=== PATIENT | male | born 1955 | race Caucasian/White ===

== ENCOUNTER 2018-08-23 05:58 | Inpatient (IN) ==
--- NOTE | 2018-07-01 10:00 | Anesthesiology Consultation ---
Date of Service July 01, 2018 Assessment & Plan (1) Encounter for pre-operative examination: Chart Review Chart Review: Acceptable Risk for Surgery and Patient seen in Pre Admission Testing Teaching & Discussion Instructed NPO after midnight before surgery, except medications with 15 cc of water. Medication instructions provided according to the PAT guidelines. History Surgery Operation Date: 08/23/18 08:50 Proposed Procedures p Left Total Knee Arthroplasty - Hilario Nguyen MD Height/Weight Height: 5 ft 5.5 in Weight: 93.3 kg Allergies Allergy/AdvReac Type Severity Reaction Status Date / Time Penicillins Allergy Severe CONVULSIONS/SEIZURE Verified 06/26/18 12:00 LIKE ACTIVITY Medications Home Medications Medication Instructions Recorded Confirmed Last Taken lisinopril 20 mg PO QAM 06/26/18 06/26/18 Unknown meloxicam 15 mg PO QAM 06/26/18 06/26/18 Unknown Past Medical History Medical History Cancer SKIN ABOVE RT EYE Hyperlipidemia BORDERLINE Hypertension Migraine Obesity Osteoarthritis Past Surgical History Surgical History History of colonoscopy History of herniorrhaphy RT/LEFT INGUINAL History of mandibular surgery BROKEN JAW REPAIR 1974, NO ISSUES WITH JAW NOW History of tooth extraction Past Anesthesia History No Hx of Anesthesia Complications and No Family Hx of Anesthesia Complications History of PONV No Social History Smoking Status: Never smoker Do You Dip or Chew Tobacco: No Hx Alcohol Use: Yes Alcohol type: beer and wine alcohol intake frequency: a few times a month Hx Substance Use: No substance use type: does not use Exercise / Class Metabolic Activity II 4-5 Yardwork/Stairs/Walk up hill (some mild occ SOB with stairs 2/2 knee pain /deconditioning, no CP) Review of Systems Pt denies any recent chest pain, shortness of breath, palpitations, cough, fever. +seasonal cold Physical Exam Vital Signs BP: 162/88 P: 86 SPO2: 95% RA T: 98.3 R: 16 ENMT Mouth: + dentition abnormality (few missing); no dental restorations, no chipped teeth and no loose teeth Thyromental Distance: < 3.5 Finger Breadths (2) Mallampati Class: II Neck neck extension not limited Respiratory normal respiratory effort Auscultation: lungs clear to auscultation bilaterally Cardiovascular Rate/Rhythm: regular rate and regular rhythm Heart Sounds: no murmur Vessels: no carotid bruit Extremities: no edema Testing Electrocardiogram Date: 07/01/18 Findings: + NSR @ (82) Chest X-Ray Date: 07/01/18 Findings: + NAD Laboratory Results 07/01/18 10:15 07/01/18 10:15 Blood Type B Positive 07/01/18 10:15 Antibody Screen NEGATIVE 07/01/18 10:15 PT 10.4 Seconds (9.0-12.0) 07/01/18 10:15 INR 1.0 (0.9-1.1) 07/01/18 10:15 APTT 26.8 Seconds (21.0-31.0) 07/01/18 10:15
--- NOTE | 2018-07-01 10:07 | PAT Medication Instructions ---
Medication Instructions Date of Service July 01, 2018 Home Medications lisinopril 20 mg PO QAM meloxicam 15 mg PO QAM Per surgeon's instructions meloxicam 15 mg PO QAM (to be held for 10 days prior to surgery) Hold the morning of surgery lisinopril 20 mg PO QAM NOTHING TO EAT OR DRINK AFTER MIDNIGHT Other Notes If you have any questions please call us at [phone] or [phone] or [phone] or [phone]
--- NOTE | 2018-07-01 10:46 | XRay Report ---
XR chest Pre-admission PA/Lat HISTORY: PREOP COMPARISON: None. FINDINGS: The lungs are clear. Cardiac silhouette is normal in size. No pleural effusions. No pneumot horax. IMPRESSION: No acute process. Electronically signed by: Gume Melendez M.D. 07/01/2018 10:45 AM
[2018-07-01 10:50] LABS: Basophils # (auto) 0.03 K/uL (0-0.2); Basophils % (auto) 0.4 %; Eosinophils # (auto) 0.14 K/uL (0-0.5); Eosinophils % (auto) 1.9 %; Hematocrit (blood only) 44.6 % (42-52); Hemoglobin 15.3 g/dL (14.0-18.0); Immature Granulocytes # (auto) 0.02 K/uL (0.00-0.02); Immature Granulocytes % (auto) 0.3 %; Lymphocytes # (auto) 1.34 K/uL (1.2-3.4); Lymphocytes % (auto) 18.1 %; Mean Corpuscular Hgb Conc 34.3 g/dL (32-36); Mean Corpuscular Volume 90.7 fL (80-100); Mean Platelet Volume 9.7 fL (7.4-10.4); Monocytes # (auto) 0.65 K/uL (0.11-0.59); Monocytes % (auto) 8.8 %; Neutrophils # (auto) 5.21 K/uL (1.4-6.5); Neutrophils % (auto) 70.5 %; Platelet Count 196 K/uL (130-400); RDW Coefficient of Variation 12.8 % (11.5-14.5); RDW Standard Deviation 42.7 fL (36.4-46.3); Red Blood Count 4.92 M/uL (4.7-6.1); White Blood Count 7.39 K/uL (4.8-10.8)
[2018-07-01 10:59] LABS: Partial Thromboplastin Time 26.8 Seconds (21.0-31.0); Prothrombin Time 10.4 Seconds (9.0-12.0)
[2018-07-01 12:21] LABS: BUN Creatinine Ratio 23.7 (10-20); Creatinine Clr Calc Pharmacy 86.3 ml/min; Est GFR (African American) 100.3; Est GFR (Non-African American) 86.5; Potassium 4.4 mmol/L (3.5-5.1)
--- NOTE | 2018-08-18 12:55 | History and Physical Report ---
DATE OF ADMISSION: 08/23/2018 CHIEF COMPLAINT: Bilateral knee pain and discomfort, left side greater than right. HISTORY OF PRESENT ILLNESS: Patient is a 63-year-old gentleman whom I have been following for years for his bilateral knee pain and DJD. He has a long history of knee pain. We have been putting in injections to his knees every 3 months over the past 3 years. He has been waiting and trying to put off surgery but now has decided to proceed. Both knees hurt. The shots give him just temporary relief anymore. The left knee is quite a bit worse than right. He has pain all the time. The more he walks, the more it hurts. He has nighttime pain. He has difficulty going up and down steps. They could proceed with the surgery. PAST MEDICAL HISTORY: Significant for 1. Hypertension. 2. Arthritis. 3. Kidney stones. 4. BPH. PAST SURGICAL HISTORY: Previous surgeries include 1. Herniorrhaphy x2. 2. A dental/mandibular osteotomy. ALLERGIES: PENICILLIN WHICH CAUSED HIVES. No known respiratory problems. Question of a convulsion with the penicillin years ago. MEDICATIONS: Current medications include 1. Lisinopril. 2. Mobic. SOCIAL HISTORY: A 63-year-old male, quite active. He is . He does not smoke. No significant alcohol intake. FAMILY HISTORY: Noncontributory. REVIEW OF SYSTEMS: Negative for diabetes, neurologic problem, vascular problem, bleeding disorders. No chest pain, no shortness of breath. No history of DVT or PE. PHYSICAL EXAMINATION: GENERAL: Examination reveals a healthy and pleasant middle-aged male. He looks to be in good health. HEENT: Benign. NECK: Supple. No lymphadenopathy. RESPIRATORY: Lungs are clear to auscultation. CARDIOVASCULAR: Heart has a regular rate and rhythm. GASTROINTESTINAL: Abdomen is soft, nontender, nondistended. EXTREMITIES: Grossly neurovascularly intact except as follows: Examination of both knees reveals patient walks with a waddling gait. He has varus alignment to both knees. With weightbearing, he has varus stress bilaterally. He has bony hypertrophy in the medial side of both knees with moderate sized knee effusion. Range of motion is symmetric with about 10 degree flexion contracture bilaterally in flexion to 115 degrees. No pain with his hip motion. IMAGING: X-rays of both knees reviewed. He has advanced bilateral knee DJD. He has complete loss of his medial joint space with some tibial femoral subluxation. He has varus deformity. The left knee is probably a bit worse than the right. ASSESSMENT: A 63-year-old male with advanced bilateral knee pain, degenerative joint disease, left side more severe than the right. He has failed conservative treatment and now would like to proceed with the total knee replacement. PLAN: Will take him to the operating room and do a left total knee replacement. The risks and benefits of this procedure were explained to the patient including but not limited to DVT, PE, , infection, neurological injury, vascular injury, bleeding problem, pain, limited range of motion, stiffness, failure to relieve symptoms, incomplete relief of symptoms, need for further surgery in the future, etc. Patient understands and desires to proceed. Informed consent was obtained. We did talk to him about holding his lisinopril on the morning of surgery. He has already stopped his Mobic. He should be okay taking Ancef as this penicillin does not sound like a real true anaphylactic reaction.
[2018-08-23] MEDS ORDERED: FAMOTIDINE 20 MG TAB PO SCH (06:00)
[2018-08-23] MEDS ORDERED: SCOPOLAMINE 1.5 MG TDSY TD SCH (06:00)
[2018-08-23] MEDS ORDERED: GABAPENTIN 300 MG x 2 PO SCH (06:00)
[2018-08-23] MEDS ORDERED: BUPIVACAINE LIPOSOME/PF 266 MG, BUPIVACAINE/EPINEPHRINE 50 ML, SODIUM CHLORIDE 0.9% 30 ... INFIL SCH (06:00)
[2018-08-23] MEDS ORDERED: CEFAZOLIN 2000MG 2,000 MG/15 ML SYR IV SCH (06:00)
[2018-08-23] MEDS ORDERED: LR 15ML/HR IV SCH (06:00)
[2018-08-23] MEDS ORDERED: ACETAMINOPHEN 500 MG TAB PO SCH (06:00)
[2018-08-23] MEDS ORDERED: METOCLOPRAMIDE HCL 10 MG TABLET PO SCH (06:00)
[2018-08-23] MEDS ORDERED: TRANEXAMIC ACID 1,000 MG **IV Intra-op IV SCH (06:30)
[2018-08-23] MEDS ORDERED: ROPIVACAINE 0.5% 5 MG/ML 30 ML VIAL ONE (06:32)
[2018-08-23] MEDS ORDERED: BUPIVACAINE 0.5 % 5 MG/1 ML PF 10ML VIAL ONE (06:33)
[2018-08-23] MEDS: LR 500ML BOLUS, THEN 15ML/HR IV SCH ×2 (06:50→13:04)
--- NOTE | 2018-08-23 06:51 | History & Physical Bridge Note ---
Date of Service August 23, 2018 History & Physical Bridge Note I have examined the patient, reviewed the History & Physical and in the interval since the performance of the History & Physical I have noted the following changes of clinical significance: no changes noted
[2018-08-23] MEDS ORDERED: ONDANSETRON INJ 2 MG/ML 2 ML VIAL IV PRN ×2 (07:47→12:29)
[2018-08-23] MEDS ORDERED: fentaNYL citrate 100 MCG/2 ML VIAL IV PRN (07:47)
[2018-08-23] MEDS ORDERED: PHENYLEPHRINE 100MCG/ML 5ML SYR IV PRN (07:47)
[2018-08-23] MEDS ORDERED: ATROPINE SULFATE 0.1 MG/ML 10ML SYR IV PRN (07:47)
[2018-08-23] MEDS ORDERED: HYDROmorphone INJ 1 MG/ML SYRINGE IV PRN (07:47)
[2018-08-23] MEDS ORDERED: PROMETHAZINE HCL 12.5 MG in SODIUM CHLORIDE 0.9% 50 ML IV PRN (07:47)
[2018-08-23] MEDS ORDERED: ePHEDrine sulfate 50 MG/ML AMP IV PRN (07:47)
[2018-08-23] MEDS ORDERED: PROPOFOL IV EMULSION 10 MG/ML 20 ML VIAL IV ONE (07:54)
[2018-08-23] MEDS ORDERED: LIDOCAINE HCL 2% 2 ML VIAL/AMP(20MG/ML) INFIL ONE (07:54)
[2018-08-23] MEDS ORDERED: MIDAZOLAM HCL 1 MG/ML 2ML VIAL ONE (07:55)
[2018-08-23] MEDS ORDERED: fentaNYL citrate 100 MCG/2 ML VIAL ONE (07:55)
[2018-08-23] MEDS ORDERED: BUPIVACAINE LIPOSOME 1.3% 266 MG/20 ML VIAL INFIL ONE (09:07)
[2018-08-23] MEDS ORDERED: BUPIVACAINE 0.25% 30 ML VIAL ONE (09:07)
[2018-08-23] MEDS ORDERED: SODIUM CHLORIDE 0.9% PF 50 ML VIAL ONE (09:07)
[2018-08-23] MEDS ORDERED: EPINEPHrine INJ 1 MG/ML AMP ONE (09:07)
[2018-08-23] MEDS ORDERED: BACITRACIN INJ 50,000 UNIT VIAL ONE (09:07)
[2018-08-23] MEDS ORDERED: PHENYLEPHRINE 100MCG/ML 5ML SYR ONE (09:56)
[2018-08-23] MEDS ORDERED: ePHEDrine sulfate 50 MG/ML SYR ONE (09:56)
--- NOTE | 2018-08-23 11:07 | Post Operative Brief Note ---
Immediate Post Op Note v1 Date of Surgery August 23, 2018 Pre & Post Diagnosis Operation Date: 08/23/18 08:50 Pre-Op Diagnosis: Left Knee Advanced Degenerative Joint Disease Post-Op Diagnosis: Left Knee Advanced Degenerative Joint Disease Procedure Operation Date: 08/23/18 08:50 Actual Procedures p Left Total Knee Arthroplasty(Left) - Hilario Nguyen MD Surgeon Hilario Nguyen MD Store Detective Merry, PAC Estimated Blood Loss 50 Findings Consistent with Post-Op Diagnosis Fluids 1500 cc Specimens Left Knee Drains Montez Catheter (16 English montez catheter was inserted by ALEX King, without difficulty, clear yellow urine obtained, otuput to be montiored by Anesthesia.) Anesthesia Type Spinal MAC Complications none Disposition Accompanied Patient To Recovery: No Disposition: Recovery Room
--- NOTE | 2018-08-23 11:54 | Anesthesiology Progress Note ---
Date of Service August 23, 2018 Anesthesia Post Procedure Vital Signs Vital Signs: Temp Pulse Resp BP Pulse Ox 08/23/18 11:50 82 20 136/71 98 08/23/18 11:40 36.4 C L 91 H 18 126/69 100 08/23/18 11:30 77 18 134/66 100 08/23/18 11:20 75 19 127/73 100 08/23/18 11:12 37.1 C 84 16 139/74 100 08/23/18 06:45 36.7 C 90 18 156/85 H 96 Notes Mental Status: alert / awake / arousable Patient Amnestic to Procedure: Yes Nausea / Vomiting: adequately controlled Pain: adequately controlled Airway Patency, RR, SpO2: stable & adequate BP & HR: stable & adequate Neuraxial Anesthesia: was administered and sensory block is resolving Anesthetic Complications: no major complications apparent
--- NOTE | 2018-08-23 12:26 | XRay Report ---
LEFT KNEE 2 VIEWS History: Left total knee arthroplasty. Degenerative arthritis. Postop. FINDINGS: The patient is status post a left total knee arthroplasty. The hardware is intact. No fract ure or dislocation. Skin nisreen are in place. IMPRESSION: Left total knee arthroplasty. No evidence for hardware complication. Electronically signed by: Gume Melendez M.D. 08/23/2018 12:25 PM
[2018-08-23] MEDS ORDERED: TAMSULOSIN HCL 0.4 MG CAP PO PRN (12:29)
[2018-08-23] MEDS ORDERED: METOCLOPRAMIDE HCL INJ 5 MG/ML 2 ML VIAL IV PRN (12:29)
[2018-08-23] MEDS ORDERED: NALOXONE HCL 0.4 MG/1 ML VIAL/CARP IV PRN (12:29)
[2018-08-23] MEDS ORDERED: ALUMINUM/MAGNESIUM SUSP 30 ML UDC PO PRN (12:29)
[2018-08-23] MEDS ORDERED: HYDROmorphone INJ 0.5 MG/0.5 ML SYR IV PRN (12:29)
[2018-08-23] MEDS ORDERED: MAGNESIUM HYDROXIDE SUSP 30 ML UDC PO PRN (12:29)
[2018-08-23] MEDS ORDERED: OXYCODONE HCL IR 5 MG TAB (IMMEDIATE RELEASE) PO PRN (12:29)
[2018-08-23] MEDS ORDERED: BISACODYL 10 MG SUPP PR PRN (12:29)
[2018-08-23] MEDS: KETOROLAC 30 MG/ML VIAL IV SCH ×2 (13:11→20:42)
--- NOTE | 2018-08-23 13:54 | Operative Report ---
DATE OF OPERATION: 08/23/2018 SURGEON: Hilario Nguyen MD HEPATOLOGIST: ALEX Finch PREOPERATIVE DIAGNOSIS: Left knee degenerative joint disease. POSTOPERATIVE DIAGNOSIS: Left knee degenerative joint disease. PROCEDURE PERFORMED: Left cemented posterior stabilized total knee arthroplasty. COMPLICATIONS: None. ESTIMATED BLOOD LOSS: 50 mL. FLUID REPLACEMENT: 1500 mL crystalloid fluid replacement. TOURNIQUET TIME: 60 minutes at 300 mmHg. ANESTHESIA: Spinal with adductor canal block. DRAINS: None. SPECIMENS: Left knee sent for pathology. OPERATIVE INDICATIONS: The patient is a 63-year-old gentleman who has had a long history of bilateral knee pain and discomfort. I have been treating him over the past several years with injections. This became less successful over time. He was waiting until he turned 63 for unclear reasons and has now elected to proceed with total knee arthroplasty. OPERATIVE FINDINGS: Operative findings revealed advanced left knee DJD. He had extensive grade 4 changes with eburnation of the medial femoral condyle and medial tibial plateau. He had large osteophytes in the medial compartment and posterior medial compartment. He had multiple large loose bodies throughout the knee. He had a fixed varus deformity to his knee with a large knee joint effusion. OPERATIVE IMPLANTS: Operative implants consisted of: 1. A Biomet Vanguard size 65 left posterior stabilized femoral component. 2. A Biomet size 71 tibial tray. 3. A 10 mm posterior stabilized polyethylene insert. 4. A 31 x 8 all poly patella. OPERATIVE PROCEDURE: The patient was taken to the operating room, identified, and placed on the operating table in supine position. All contact areas were appropriately padded. IV antibiotics provided by anesthesia team. A spinal anesthetic and adductor canal block had been provided in the holding area. Lopez catheter was placed in sterile fashion. Left thigh tourniquet was then placed and the left lower extremity was then prepped and draped in usual sterile fashion. The left leg was elevated and exsanguinated with Esmarch and tourniquet was placed at 300 mmHg. An anterior approach to the left knee was then performed through a longitudinal incision centered over the patella. Sharp dissection was carried out through the subcutaneous tissues down to the level of the extensor mechanism. A medial parapatellar arthrotomy incision was made. Some subperiosteal dissection was carried out medially. The fat pad resected from beneath the patellar tendon. The lateral patellofemoral ligament was released. The patella was everted and knee was flexed. The osteophytes were taken off the distal femur. The ACL and PCL were then released from the distal femur and the tibia subluxated anteriorly. The external tibial alignment jig was placed in the anterior face of the tibia and adjusted 16 mm medially. Proximal tibial cut was made essentially and flushed with the most deficient aspect of the posteromedial tibial plateau. He had quite a bit of tibial wear. Some osteophytes were taken off medially. The tibia was sized to a size 71. Attention was then drawn to the femur. The distal femur was entered with a sharp drill bit. Intramedullary canal was suctioned. A right 6-degree valgus cutting guide was placed. Distal femoral cutting block was pinned in place. Distal femoral cut was made to take an additional 3 mm of bone off the distal femur. Femur was then sized to a size 65. This sized exactly to a 65. The AP cutting block was pinned parallel to the epicondylar axis, which was 5 degrees of external rotation. The anterior cut, anterior chamfer, posterior cut, posterior chamfer cuts were made. Box cutting guide was placed and adjusted slightly lateral and the box cut was made. The knee was flexed. The remnants of the medial and lateral menisci were excised. The osteophytes were taken off the posterior aspect of the femur. Trial femoral component was placed. Tibial tray was pinned in maximum external rotation and drill and stem punch were used to create defect in proximal tibia for the tibial tray. The knee was then trialed and the 10 mm insert fit most appropriately. There was a little bit of laxity due to his stiff knee preoperatively, I elected to leave his knee just a little on the loose side. Attention was then drawn to the patella. The patella was cleaned of all soft tissues. Patella thickness measured 25 mm in thickness and cut down to 15. It was sized to a size 31 patella. Lug holes were drilled for 31 patella. Lateral osteophyte was removed. Patella button was placed. Knee was taken through range of motion and the patella tracked nicely with no thumbs test. Attention was then drawn toward placement of the permanent components. All trial components were removed. Bone plug was placed in the distal femur to limit blood loss. A double batch of Palacos G cement was mixed. A Biomet Vanguard size 65 left posterior stabilized femoral component, size 71 tibial tray, 10 mm posterior stabilized polyethylene insert, and a 31 x 8 all poly patella then cemented in place. Knee was brought down into full extension until cement hardened. A final cement check was then performed. The pericapsular tissues were injected with a total of 100 mL of a combination of 20 mL of Exparel, 30 mL normal saline, 50 mL of 0.25% Marcaine with epinephrine. The patient did receive 1 gram of tranexamic acid. The tourniquet was then let down for final tourniquet time of 60 minutes. Hemostasis was assured with use of electrocautery. The extensor mechanism was then closed with a combination of #1 PDS suture and #1 Vicryl suture in [id number] fashion. Extensor mechanism was checked and found to be intact. The subcutaneous tissues were then closed with 2 Dexon suture in buried interrupted fashion. Skin was closed with skin nisreen. Leg was then cleaned, dried and a sterile dressing of Xeroform, 4 x 4's, sterile cast padding and Duy bandage were applied. The patient then transferred to the recovery room in stable condition. The patient tolerated the procedure well with no complications. All needle and sponge counts were correct at the end of the operation. I attest to the content of the Intraoperative Record and any orders documented therein. Any exception s are noted below.
[2018-08-23] MEDS: SODIUM CHLORIDE 0.9% 1000ML 1,000 ML IV SCH (14:09)
[2018-08-23] MEDS ORDERED: TRANEXAMIC ACID 1,000 MG in 0.9 % SODIUM CHLORIDE 100 ML IV SCH (17:00)
[2018-08-23] MEDS: CEFAZOLIN 2000MG 2,000 MG/15 ML SYR IV SCH (17:22)
[2018-08-23] MEDS: LISINOPRIL 20 MG TAB PO SCH (17:22)
[2018-08-23] MEDS: FERROUS GLUCONATE 324 MG TAB PO SCH (17:23)
[2018-08-23] MEDS: CHECK SCOPOLAMINE PATCH PLACEMENT SCH ×2 (17:23→23:52)
[2018-08-23] MEDS: ASPIRIN 81 MG ECTAB PO SCH (20:42)
[2018-08-23] MEDS: DOCUSATE SODIUM 100 MG CAP PO SCH (20:42)
[2018-08-23] MEDS: TAPENTADOL HCL ER 50 MG TABCR PO SCH (20:42)
[2018-08-23] MEDS: ACETAMINOPHEN 500 MG TAB PO SCH (20:42)
[2018-08-23] MEDS ORDERED: SENNA 8.6 MG TAB PO SCH (21:00)
[2018-08-24] MEDS: SODIUM CHLORIDE 0.9% 1000ML 1,000 ML IV SCH (01:17)
[2018-08-24] MEDS: CEFAZOLIN 2000MG 2,000 MG/15 ML SYR IV SCH (02:04)
[2018-08-24] MEDS: KETOROLAC 30 MG/ML VIAL IV SCH ×2 (02:04→08:32)
[2018-08-24] MEDS: ACETAMINOPHEN 500 MG TAB PO SCH (05:35)
[2018-08-24 06:07] LABS: Hematocrit (blood only) 36.9 % (42-52); Hemoglobin 12.4 g/dL (14.0-18.0); Mean Corpuscular Hgb Conc 33.6 g/dL (32-36); Mean Corpuscular Volume 91.3 fL (80-100); Platelet Count 176 K/uL (130-400); RDW Coefficient of Variation 13.2 % (11.5-14.5); RDW Standard Deviation 43.8 fL (36.4-46.3); Red Blood Count 4.04 M/uL (4.7-6.1); White Blood Count 6.18 K/uL (4.8-10.8)
[2018-08-24 06:42] LABS: BUN Creatinine Ratio 20.7 (10-20); Calcium 8.8 mg/dl (8.5-10.1); Creatinine Clr Calc Pharmacy 77.6 ml/min; Est GFR (African American) 88.8; Est GFR (Non-African American) 76.6; Potassium 4.6 mmol/L (3.5-5.1)
--- NOTE | 2018-08-24 08:20 | Progress Note ---
DATE: 08/24/2018 SUBJECTIVE: A 63-year-old gentleman postop day 1 from a left knee replacement. He is doing quite well. Pain is controlled. No chest pain, no shortness of breath. Not feeling dizzy or lightheaded. He is worried about getting out of the hospital before storm comes. OBJECTIVE: VITAL SIGNS: Temperature 37.0. Stable. GENERAL: Examination shows a pleasant middle-aged male. He is sitting up in his bed working on his computer, looks comfortable. RESPIRATORY: Lungs are clear to auscultation. CARDIVOASCULAR: Heart has regular rate and rhythm. GASTROINTESTINAL: Abdomen is soft, nontender, nondistended. EXTREMITIES: Grossly neurovascularly intact except as follows: Examination of the left leg reveals the dressing to be clean, dry, and intact. He can dorsiflex and plantarflex his foot appropriately. He is neurologically intact. LABORATORY DATA: Hemoglobin 12.4, hematocrit 36.9. Electrolytes are stable. ASSESSMENT: A 63-year-old gentleman postop day 1 from a left knee replacement, doing reasonably well. His pain is controlled. He is quite concerned about getting out of the hospital before the storm comes. PLAN: 1. DVT prophylaxis including thigh-high TEDs, SCDs, and aspirin twice a day. 2. PT/OT. Weight bear as tolerated. Left total knee protocol. 3. Pain control, doing well with current pain regimen. 4. Disposition: He is going to be discharged to home and do outpatient therapy once recovered and stable. We will see how therapy goes today.
[2018-08-24] MEDS: DOCUSATE SODIUM 100 MG CAP PO SCH (08:25)
[2018-08-24] MEDS: FERROUS GLUCONATE 324 MG TAB PO SCH (08:25)
[2018-08-24] MEDS: ASPIRIN 81 MG ECTAB PO SCH (08:26)
[2018-08-24] MEDS: TAPENTADOL HCL ER 50 MG TABCR PO SCH (08:32)
[2018-08-24] MEDS: LISINOPRIL 20 MG TAB PO SCH (08:53)
[2018-08-24] MEDS ORDERED: MULTIVITAMIN TAB PO SCH (09:00)
--- NOTE | 2018-08-24 09:06 | Anesthesiology Progress Note ---
Date of Service August 24, 2018 Anesthesia Post Procedure Vital Signs Vital Signs: Temp Pulse Pulse Resp BP Pulse Ox 08/24/18 08:10 36.7 C 84 16 148/76 H 99 08/24/18 02:02 37.0 C 72 16 145/74 H 97 08/23/18 23:11 37.0 C 70 16 169/72 H 95 08/23/18 19:31 36.8 C 72 20 117/69 94 08/23/18 15:00 36.8 C 73 20 166/74 H 95 08/23/18 14:01 36.7 C 81 16 160/79 H 96 08/23/18 13:00 82 17 158/88 H 95 08/23/18 12:28 76 16 150/79 H 96 08/23/18 12:00 36.7 C 86 16 137/74 98 08/23/18 11:50 82 20 136/71 98 08/23/18 11:40 36.4 C L 91 H 18 126/69 100 08/23/18 11:30 77 18 134/66 100 08/23/18 11:20 75 19 127/73 100 08/23/18 11:12 37.1 C 84 16 139/74 100 Notes Mental Status: alert / awake / arousable Patient Amnestic to Procedure: Yes Nausea / Vomiting: adequately controlled Pain: adequately controlled Airway Patency, RR, SpO2: stable & adequate BP & HR: stable & adequate Neuraxial Anesthesia: was administered and sensory block is resolving Anesthetic Complications: no major complications apparent Notes: POD #1 s/p Left TKA. Doing well; no complaints. Has been up and ambulating, tolerating PO without problems. VSS.
--- NOTE | 2018-08-27 14:05 | Discharge Summary ---
ADMITTING PHYSICIAN AND SURGEON: Hilario Nguyen MD ADMITTING DIAGNOSIS: Left knee degenerative joint disease. SURGERY PERFORMED: Left total knee arthroplasty. SECONDARY DIAGNOSES: Hypertension, arthritis, kidney stones, benign prostatic hypertrophy. CONSULTS: None obtained. HISTORY AND PHYSICAL EXAMINATION: Well documented in the patient's chart. HOSPITAL COURSE: The patient was admitted on 08/23/2018, underwent total knee arthroplasty, tolerated the procedure well. There were no complications. He was transferred to the PACU postoperatively and later to the orthopedic floor for further care. He was given Ancef for antibiotic prophylaxis, JEREMIAH stockings, SCDs and aspirin for DVT prophylaxis. Hemoglobin, hematocrit and vital signs were monitored during his hospital stay and remained stable. He did not require any blood transfusions. There were no complications. By postoperative day 1, he was tolerating a regular diet, pain was controlled with oral pain medicine. He was participating in physical therapy. By postop day 1, he was discharged home. He was given printed discharge instructions including new prescriptions for extra-strength Tylenol, aspirin and oxycodone. Continue his home medications, continue physical therapy, weightbearing as tolerated, JEREMIAH stockings. Follow up approximately 2 weeks postoperatively or sooner if there are any problems or concerns.
== END 2018-08-24 11:45 | disposition home or self-care (01) | DRG 470 ==
LOC: ASU 05:58 → 3E 11:11

== ENCOUNTER 2019-09-02 08:09 | Inpatient (IN) ==
--- NOTE | 2019-07-22 14:23 | PAT Medication Instructions ---
Medication Instructions Date of Service July 22, 2019 Home Medications meloxicam 15 mg PO QAM hydrochlorothiazide 25 mg PO QAM lisinopril 40 mg PO QAM omeprazole magnesium [Prilosec] 20 mg PO QAM ASK your surgeon for instructions meloxicam 15 mg PO QAM DO NOT take the morning of surgery hydrochlorothiazide 25 mg PO QAM lisinopril 40 mg PO QAM Take morning of surgery With a small sip of water, OTHERWISE NOTHING TO EAT OR DRINK AFTER MIDNIGHT: omeprazole magnesium [Prilosec] 20 mg PO QAM Other Notes If you have any questions please call us at [phone] or [phone] or [phone] or [phone]
--- NOTE | 2019-07-23 10:01 | Anesthesiology Consultation ---
Date of Service July 23, 2019 Assessment & Plan (1) Encounter for pre-operative examination: - S/P Left TKA: 08/23/18: SAB x 1 at L3-L4 + PNB at [facility] Chart Review Chart Review: Acceptable Risk for Surgery and Patient seen in Pre Admission Testing Teaching & Discussion Pre-Anesthesia Teaching/Discussion Notes: Instructed NPO after midnight before surgery,except medications with 15 cc of water. Medication instructions provided according to the PAT guidelines. History Surgery Operation Date: 09/02/19 07:00 Proposed Procedures p Right Total Knee Arthroplasty - Hilario Nguyen MD Height/Weight Height: 5 ft 6 in Weight: 97.7 kg Allergies Allergy/AdvReac Type Severity Reaction Status Date / Time Penicillins AdvReac Severe convulsions/seizure-like Verified 07/22/19 14:23 activity Medications Home Medications Medication Instructions Recorded Confirmed Last Taken meloxicam 15 mg PO QAM 06/26/18 07/16/19 08/12/18 hydrochlorothiazide 25 mg PO QAM 07/16/19 07/16/19 Unknown lisinopril 40 mg PO QAM 07/16/19 07/16/19 Unknown omeprazole magnesium [Prilosec] 20 mg PO QAM 07/16/19 07/16/19 Unknown Past Medical History Medical History Cancer skin (above right eye s/p excision) GERD (gastroesophageal reflux disease) controlled Hyperlipidemia "borderline" Hypertension Kidney stones Migraine Obesity Osteoarthritis Exercise / Class Metabolic Activity III < 4 Walking/Shop/Light housework Past Surgical History Surgical History History of colonoscopy History of herniorrhaphy RT/LEFT INGUINAL History of left knee replacement Left TKA: 08/23/18: SAB x 1 at L3-L4 + PNB at [facility] History of mandibular surgery BROKEN JAW REPAIR (1974)/NO ROM LIMITATIONS History of tooth extraction Past Anesthesia History No Hx of Anesthesia Complications and No Family Hx of Anesthesia Complications History of PONV No Hx of PONV and Hx of Motion Sickness ("only if on boat"/seasickness) Social History Smoking Status: Never smoker Do You Dip or Chew Tobacco: No Hx Alcohol Use: Yes Alcohol type: beer and wine alcohol intake frequency: a few times a month Hx Substance Use: No substance use type: does not use Review of Systems Reflux controlled. Patient denies chest pain, shortness of breath, cough, wheezing, palpitations. Physical Exam Vital Signs VITALS BP 155/91 P 66 TEMP 98.0 SP02 96%RA RESP 18 PHYSICAL Full neck and c-spine range of motion. Full TMJ range of motion. TMD 2.5 finger breaths Mallampati Score 3 Dentition: missing molars Lungs: clear throughout to auscultation Cardiac: regular rate and rhythm, no murmurs noted Spine: normal Carotid arteries: negative bruit Extremities: no edema Testing Laboratory Results 07/23/19 10:22 07/23/19 10:22 PT 10.3 Seconds (9.0-12.0) 07/23/19 10:22 INR 1.0 (0.9-1.1) 07/23/19 10:22 APTT 25.6 Seconds (21.0-31.0) 07/23/19 10:22 Blood Type B Positive 07/23/19 10:22 Antibody Screen NEGATIVE 07/23/19 10:22 Electrocardiogram Date: 07/23/19 Findings: + NSR @ (67) Chest X-Ray Date: 07/23/19 Cardiomediastinal silhouette normal. Mildly low lung volumes. No focal opacity. No pleural effusion or pneumothorax. Degenerative changes of the thoracic spine. Upper abdomen normal. No acute cardiopulmonary disease.
--- NOTE | 2019-07-23 10:47 | XRay Report ---
XR chest Pre-admission PA/Lat CLINICAL HISTORY: 64 years-old Male presenting with preoperative assessment. TECHNIQUE: PA and lateral views of the chest were obtained. COMPARISON: 07/01/2018. FINDINGS: Cardiomediastinal silhouette normal. Mildly low lung volumes. No focal opacity. No pleural effusion o r pneumothorax. Degenerative changes of the thoracic spine. Upper abdomen normal. IMPRESSION: No acute cardiopulmonary disease. ACT 112: Negative or not required by law. Electronically signed by: Jose Wadsworth M.D. 07/23/2019 10:45 AM
[2019-07-23 11:18] LABS: Basophils # (auto) 0.03 K/uL (0-0.2); Basophils % (auto) 0.7 %; Eosinophils # (auto) 0.05 K/uL (0-0.5); Eosinophils % (auto) 1.2 %; Hematocrit (blood only) 41.8 % (42-52); Hemoglobin 13.9 g/dL (14.0-18.0); Immature Granulocytes # (auto) 0.01 K/uL (0.00-0.02); Immature Granulocytes % (auto) 0.2 %; Lymphocytes # (auto) 1.16 K/uL (1.2-3.4); Lymphocytes % (auto) 27.1 %; Mean Corpuscular Hemoglobin 30.9 pg (25-34); Mean Corpuscular Hgb Conc 33.3 g/dL (32-36); Mean Corpuscular Volume 92.9 fL (80-100); Mean Platelet Volume 9.7 fL (7.4-10.4); Monocytes # (auto) 0.53 K/uL (0.11-0.59); Monocytes % (auto) 12.4 %; Neutrophils % (auto) 58.4 %; Platelet Count 209 K/uL (130-400); RDW Coefficient of Variation 12.6 % (11.5-14.5); RDW Standard Deviation 42.8 fL (36.4-46.3); White Blood Count 4.28 K/uL (4.8-10.8)
[2019-07-23 11:28] LABS: Anion Gap 0 (3-11); BUN Creatinine Ratio 22.3 (10-20); Blood Urea Nitrogen 23 mg/dl (7-18); Calcium 9.7 mg/dl (8.5-10.1); Carbon Dioxide 32 mmol/L (21-32); Chloride 105 mmol/L (98-107); Creatinine Clr Calc Pharmacy 78.8 ml/min; Est GFR (African American) 87.1; Est GFR (Non-African American) 75.2; Glucose 103 mg/dl (70-99); Potassium 4.7 mmol/L (3.5-5.1); Sodium 137 mmol/L (136-145)
[2019-07-23 11:29] LABS: C Reactive Protein < 0.29 mg/dl (0-0.29)
[2019-07-23 11:34] LABS: Partial Thromboplastin Ratio 0.9; Partial Thromboplastin Time 25.6 Seconds (21.0-31.0); Prothrombin Time 10.3 Seconds (9.0-12.0)
--- NOTE | 2019-08-28 18:08 | History and Physical Report ---
DATE OF ADMISSION: 09/02/2019 CHIEF COMPLAINT: Right knee pain, discomfort and instability. HISTORY OF PRESENT ILLNESS: The patient is a 64-year-old gentleman who I have been treating for years for bilateral knee pain and DJD. I have been putting shots in his knees for several years. This has become less successful over time. He did undergo a left knee replacement just about a year ago and has done quite well from this. He continues to quite limited by right knee pain. It is mostly medial pain, but some global pain. The more he is on it, the more it hurts. He limps more as the day goes on. It also feels unstable and gives out on him intermittently. He has nighttime discomfort. He would like to proceed with surgical treatment. PAST MEDICAL HISTORY: 1. Hypertension. 2. Gastroesophageal reflux disease. 3. Skin cancer. 4. Arthritis. 5. Kidney stones. 6. BPH. PAST SURGICAL HISTORY: Previous surgeries include: 1. Hernia x2. 2. Mandibular osteotomy. 3. Left total knee replacement on 08/23/2018. ALLERGIES: PENICILLIN WHICH CAUSED HIVES. No respiratory or breathing problems. CURRENT MEDICINES: Include: 1. Lisinopril once a day. 2. Meloxicam. 3. Unspecified reflux medicine. SOCIAL HISTORY: A 64-year-old male. He is very healthy. Does not smoke. No significant alcohol intake. FAMILY HISTORY: Noncontributory. REVIEW OF SYSTEM: Negative for diabetes, neurologic problem, vascular problems or bleeding disorders. Denies any chest pain or shortness of breath. No history of DVT or PE. No known bleeding problems. PHYSICAL EXAMINATION: GENERAL: Shows a healthy, pleasant, middle-aged male. Looks to be in good health. HEENT: Benign. NECK: Supple, no lymphadenopathy. LUNGS: Clear to auscultation. HEART: Has a regular rate and rhythm. ABDOMEN: Soft, nontender, nondistended. EXTREMITIES: Grossly neurovascularly intact except as follows. Examination of both knees reveal the patient walks independently. Examination of the right knee reveals varus alignment to his knee. With weightbearing, he has a varus thrust. He has got moderate size effusion. He is tender over the medial joint line. Range of motion about 5 degrees short of full extension to 120 degrees of flexion. There is no gross instability. No pain with hip motion. Examination of the left knee reveals well-healed incision. Knee alignment is anatomic. Range of motion 0-120. Good straight leg raise. No instability. X-RAYS: X-rays of the right knee reviewed. It shows advanced right knee DJD. He has got complete loss of his medial joint space. He has got tibial femoral subluxation. He has got osteophytes off his medial femoral condyle and medial tibial plateau. He has got some patellofemoral changes as well. ASSESSMENT: A 64-year-old gentleman now a year out from left knee replacement with advanced right knee degenerative joint disease. He has failed conservative treatment and happy with his left knee and would like to have his right knee replaced. PLAN: We will take him to the Operating Room and do a right total knee replacement. The risks and benefits of this procedure were explained to the patient including but not limited to DVT, PE, , infection, neurological injury, vascular injury, bleeding problem, pain, limited range of motion, stiffness, failure to relieve symptoms, incomplete relief of symptoms, need for further surgery in future, fracture, leg length inequality, nerve palsy, etc. The patient understands and desires to proceed. Informed consent was obtained. We did talk to him about holding his lisinopril the morning of surgery. He is planning to be discharged home using [facility].
[~2019-09-02 08:09] MED LIST: ACETAMINOPHEN 500 MG TAB PO SCH; BUPIVACAINE 0.5 % 5 MG/1 ML PF 10ML VIAL ONE; BUPIVACAINE LIPOSOME/PF 266 MG, BUPIVACAINE/EPINEPHRINE 50 ML, SODIUM CHLORIDE 0.9% 30 ... INFIL SCH; CEFAZOLIN 2000MG 2,000 MG/15 ML SYR IV SCH; FAMOTIDINE 20 MG TAB PO SCH; GABAPENTIN 600 MG DOSE PO SCH; LR 500ML BOLUS, THEN 15ML/HR IV SCH; LR 60ML/HR IV SCH; METOCLOPRAMIDE HCL 10 MG TABLET PO SCH; SCOPOLAMINE 1.5 MG TDSY TD SCH; TRANEXAMIC ACID 1,000 MG **IV Intra-op IV SCH
--- NOTE | 2019-09-02 09:07 | History & Physical Bridge Note ---
Date of Service September 02, 2019 History & Physical Bridge Note I have examined the patient, reviewed the History & Physical and in the interval since the performance of the History & Physical I have noted the following changes of clinical significance: no changes noted
[2019-09-02] MEDS ORDERED: MIDAZOLAM HCL 1 MG/ML 2ML VIAL ONE (09:52)
[2019-09-02] MEDS ORDERED: fentaNYL citrate 100 MCG/2 ML VIAL ONE (09:52)
[2019-09-02] MEDS ORDERED: ONDANSETRON INJ 2 MG/ML 2 ML VIAL IV PRN ×2 (10:09→14:16)
[2019-09-02] MEDS ORDERED: ATROPINE SULFATE 0.1 MG/ML 10ML SYR IV PRN (10:09)
[2019-09-02] MEDS ORDERED: ePHEDrine sulfate 50 MG/ML AMP IV PRN (10:09)
[2019-09-02] MEDS ORDERED: fentaNYL citrate 100 MCG/2 ML VIAL IV PRN (10:09)
[2019-09-02] MEDS ORDERED: BUPIVACAINE 0.25% 30 ML VIAL ONE (11:12)
[2019-09-02] MEDS ORDERED: BACITRACIN INJ 50,000 UNIT VIAL ONE (11:12)
[2019-09-02] MEDS ORDERED: SODIUM CHLORIDE 0.9% PF 50 ML VIAL ONE (11:12)
[2019-09-02] MEDS ORDERED: EPINEPHrine INJ 1 MG/ML AMP ONE (11:12)
[2019-09-02] MEDS ORDERED: BUPIVACAINE LIPOSOME 1.3% 266 MG/20 ML VIAL ONE (11:12)
[2019-09-02] MEDS ORDERED: LIDOCAINE HCL 2% 2 ML VIAL/AMP(20MG/ML) INFIL ONE (12:04)
[2019-09-02] MEDS ORDERED: PROPOFOL IV EMULSION 10 MG/ML 20 ML VIAL IV ONE (12:04)
[2019-09-02] MEDS ORDERED: ONDANSETRON INJ 2 MG/ML 2 ML VIAL ONE (12:05)
[2019-09-02] MEDS ORDERED: ePHEDrine sulfate 50 MG/ML SYR ONE (12:08)
[2019-09-02] MEDS ORDERED: PHENYLEPHRINE 100MCG/ML 5ML SYR ONE ×2 (12:08→13:07)
[2019-09-02] MEDS ORDERED: GLYCOPYRROLATE 0.2 MG/ML VIAL ONE (12:09)
--- NOTE | 2019-09-02 13:12 | Post Operative Brief Note ---
PG Immediate Post Op with CF Date of Surgery September 02, 2019 Pre & Post Diagnosis Operation Date: 09/02/19 10:40 Pre-Op Diagnosis: Right Knee Advanced Degenerative Joint Disease Post-Op Diagnosis: Right Knee Advanced Degenerative Joint Disease I identified the patient and participated in the time-out.: Yes Procedure Operation Date: 09/02/19 10:40 Actual Procedures p Right Total Knee Arthroplasty(Right) - Hilario Nguyen MD Surgeon Hilario Nguyen MD Package Sealer Merry, PAC Estimated Blood Loss 50 Findings Consistent with Post-Op Diagnosis Fluids 1600 cc Specimens Specimen Description: A. Right Knee Bone and Tissue Drains Montez Catheter (A 16 Samoan montez catheter was inserted by ALEX King, without difficulty, clear yellow urine obtained, output to be monitored by Anesthesia.) Anesthesia Type Spinal MAC Complications none Disposition Accompanied Patient To Recovery: No Disposition: Recovery Room
--- NOTE | 2019-09-02 13:33 | Anesthesiology Progress Note ---
Date of Service September 02, 2019 Anesthesia Post Procedure Vital Signs Vital Signs: Temp Pulse Pulse Resp BP Pulse Ox 09/02/19 13:25 82 13 129/66 100 09/02/19 13:18 98.2 F 85 13 117/69 100 09/02/19 08:34 97.7 F 77 18 167/77 H 96 Transfer of Care Handoff Completed per policy Notes Mental Status: alert / awake / arousable and participated in evaluation Patient Amnestic to Procedure: Yes Nausea / Vomiting: adequately controlled Pain: adequately controlled Airway Patency, RR, SpO2: stable & adequate BP & HR: stable & adequate Hydration State: stable & adequate Neuraxial Anesthesia: was administered and sensory block is resolving Anesthetic Complications: no major complications apparent and Pt Satisfied with anesthetic care
--- NOTE | 2019-09-02 13:38 | XRay Report ---
XR knee RT 1 or 2V routine CLINICAL HISTORY: Surgical Post Op COMPARISON: Knee radiographs June 13, 2019. FINDINGS: Alignment of the total right knee arthroplasty is anatomic. No fracture or unexpected radi opaque foreign body. There are skin nisreen. IMPRESSION: Expected findings following total right knee arthroplasty. ACT 112: Negative or not required by law. Electronically signed by: Garland Whitlock M.D. 09/02/2019 1:36 PM
[2019-09-02] MEDS ORDERED: bisacodyL 10 MG SUPP PR PRN (14:16)
[2019-09-02] MEDS ORDERED: TAMSULOSIN HCL 0.4 MG CAP PO PRN (14:16)
[2019-09-02] MEDS ORDERED: NALOXONE HCL 0.4 MG/1 ML VIAL/CARP IV PRN (14:16)
[2019-09-02] MEDS ORDERED: MAGNESIUM HYDROXIDE SUSP 30 ML UDC PO PRN (14:16)
[2019-09-02] MEDS ORDERED: ALUMINUM/MAGNESIUM SUSP 30 ML UDC PO PRN (14:16)
[2019-09-02] MEDS ORDERED: OXYCODONE HCL IR 5 MG TAB (IMMEDIATE RELEASE) PO PRN (14:16)
[2019-09-02] MEDS ORDERED: METOCLOPRAMIDE HCL INJ 5 MG/ML 2 ML VIAL IV PRN (14:16)
[2019-09-02] MEDS ORDERED: HYDROmorphone INJ 0.5 MG/0.5 ML SYR IV PRN (14:16)
[2019-09-02] MEDS: KETOROLAC 30 MG/ML VIAL IV SCH ×2 (15:16→20:58)
[2019-09-02] MEDS ORDERED: HYDROmorphone HCL 2 MG TAB PO PRN (15:31)
[2019-09-02] MEDS: SODIUM CHLORIDE 0.9% 1000ML 1,000 ML IV SCH ×2 (17:08→23:41)
[2019-09-02] MEDS: CHECK SCOPOLAMINE PATCH PLACEMENT SCH ×2 (17:12→23:41)
[2019-09-02] MEDS: FERROUS GLUCONATE 324 MG TAB PO SCH (17:12)
[2019-09-02] MEDS: CEFAZOLIN 2000MG 2,000 MG/15 ML SYR IV SCH ×2 (17:12→22:30)
[2019-09-02] MEDS: ACETAMINOPHEN 500 MG TAB PO SCH (17:13)
[2019-09-02] MEDS: ASCORBIC ACID 500 MG TAB PO SCH (17:13)
--- NOTE | 2019-09-02 17:21 | Operative Report ---
Post Operative Report Pre & Post Diagnosis Operation Date: 09/02/19 10:40 Pre-Op Diagnosis: Right Knee Advanced Degenerative Joint Disease Post-Op Diagnosis: Right Knee Advanced Degenerative Joint Disease I identified the patient and participated in the time-out.: Yes Procedure Operation Date: 09/02/19 10:40 Actual Procedures p Right Total Knee Arthroplasty(Right) - Hilario Nguyen MD Surgeon Hilario Nguyen MD Block Layer Merry, PAC Estimated Blood Loss 50 Findings Consistent with Post-Op Diagnosis Operative findings revealed advanced right knee DJD. He extensive grade 4 [id number] disease of the medial femoral condyle medial tibial plateau with eburnation of both surfaces. He had significant osteophytes primarily in the medial compartment. He had a fixed varus deformity to his knee with a moderate sized joint effusion. He had some spotty grade 4 changes of the patellofemoral joint and some grade 3 changes laterally. Fluids 1600 cc. Specimens Right knee sent for pathology. Drains None. Complications none Disposition Accompanied Patient To Recovery: No Disposition: Recovery Room Indications Patient is a 64-year-old gentleman with a long history of bilateral knee pain discomfort. I been following for years with conservative care including injections and oral medicines. This became less successful over time. He underwent a left knee replacement a year ago is done remarkably well this. He continues to be limited by his right knee pain and arthritic symptoms. He elected proceed with right total knee arthroplasty. Description of Procedure Operative implants consisted of: 1. Biomet Vanguard size 65 right posterior by femoral component. 2. Biomet size 71 tibial tray. 3. 12 mm posterior box polyethylene insert. 4. 31 x 8 all poly-patella. Patient was taken to the operating room identified and placed on the operating t able supine position protectors were properly padded. IV antibiotics provided by anesthesia team. Spinal anesthetic and abductor canal block had been provided holding area. Lopez catheter was placed in sterile fashion. A right thigh turn was then placed in the right lower extremities and prepped and draped in the usual sterile fashion. The right leg was elevated and exsanguinated with use of an Esmarch and a tourniquet was placed at 300 mmHg. An anterior approach to the right knee was then performed to a longitudinal incision centered of the patella. Sharp dissection was gone through subcutaneous tissue down to the extensor mechanism. A medial parapatellar arthrotomy incision was made. Some subperiosteal dissection was carried out medially for the fat pad was resected from any pat marcela tendon. Lateral patellofemoral ligament was released. The patella was subluxated laterally and the knee was flexed. The osteophytes were taken off the distal femur. The ACL and PCL were then released in the distal femur the tibia subluxated anteriorly. The external tibial alignment jig was then placed in the interface the tibia and adjusted 14 mm medially. Proximal tibial cut was made to move about a millimeter bone from most efficient aspect medial tibial plateau. Some osteophytes were taken off medial and posterior medially. Tibia sized to a size 71. Attention drawn the femur. The distal femur stem with a sharp drop with intramedullary canal was suction. A right 6 degree valgus cutting guide was placed but this femoral cutting block was pinned in place but distal femoral cut was made to take an additional 3 mm of bone off distal femur. The femur was then sized to a size 65. The AP cutting block was pinned parallel to the epicondylar axis which was 3 degrees of external rotation with anterior cut, anterior chamfer, posterior cut, posterior chamfer cuts were made. Box cutting guide was placed in a just slight lateral box cut was made. The knee was flexed. The remnants of medial lateral menisci were excised. The osteophytes were taken off the posterior aspect of the femur. A trial femoral component was placed the tibial tray was pinned in maximum external rotation and the drill and stem punch wheeze greatly affecting proximal tibia for the tibial tray. The knee was then trialed and the 12 mm insert fit most appropriately. Attention drawn the patella. The patella was cleaned of all soft tissues. Patella thickness measured 24 mm in thickness was cut down to 14. Size a size 31 patella. Locals were drilled for 31 patella. The lateral osteophyte was removed. Patella button was placed. Knee was taken through range of motion patella tracked nicely with no thumbs test. Attention drawn to place the permanent components. If all trial components were removed. Bone plug was placed in the distal femur limit blood loss. A double batch Palacos G cement was mixed. Biomet Ubiterraguard size 65 right posterior by femoral component, size 71 tibial tray, 12 mm posterior box polyethylene insert, and a 31 x 8 all poly-patella were then cemented in place. He was brought out into full extension until the cement hardened. A final cement check was then performed. The pericapsular tissues were injected with 100 cc of a combination of 20 cc of Exparel, 30 cc of normal saline, 50 cc of quarter percent Marcaine with epinephrine. Patient did receive 1 g of tranexamic acid per the tourniquet was then let down for turn time 57 minutes but hemostasis assured use electrocautery. The extensor mechanism closed with combination 1 PDS suture #1 Vicryl suture in a [id number] fashion. The extensor mechanism was checked and found to be intact the subcutaneous tissue then closed with 2 Dexon suture in buried knot fashion skin was closed skin nisreen. Leg was then cleaned dried and sterile dressing composed of Xeroform, 4 x 4's, sterile cast padding, Duy bandage were applied. Patient then transferred to the recovery room in stable condition. Patient tolerated procedure well no complications. I attest to the content of the Intraoperative Record and any orders documented therein. Any exceptions are noted below.
--- NOTE | 2019-09-02 18:12 | Progress Note ---
DATE: 09/02/2019 SUBJECTIVE: A 64-year-old gentleman postop from a right knee replacement. He is doing well. Having some pain. Just took a pain pill. No chest pain or shortness of breath. Not feeling dizzy or lightheaded. OBJECTIVE: VITAL SIGNS: Temperature 36.6. Vital signs stable. GENERAL: Shows a pleasant, middle-aged male. He is sitting up in bed, looks reasonably comfortable. LUNGS: Clear to auscultation. HEART: Has regular rate and rhythm. ABDOMEN: Soft, nontender, nondistended. EXTREMITIES: Grossly neurovascularly intact except as follows: Examination of the right lower extremity reveals the leg to be well aligned. Dressing is clean, dry, and intact. He can dorsiflex and plantarflex his foot appropriately. He has got brisk refill. He is neurologically intact. X-RAYS: X-rays of the right knee from recovery room reviewed. It shows a cemented posterior stabilized total knee arthroplasty. Components looked to be in acceptable position. No signs of problems. ASSESSMENT: A 64-year-old gentleman postop from right knee replacement, doing pretty well. He is neurologically intact. Pain is reasonably well controlled. PLAN: 1. DVT prophylaxis including thigh-high TEDs, SCDs, and aspirin twice a day. 2. PT/OT. Weight bear as tolerated. Right total knee protocol. 3. Pain control, doing okay with current pain regimen. He says he does not feel well on oxycodone. We will switch to Dilaudid. 4. Disposition: Plan to discharge to home with some home health once adequately recovered and stable.
[2019-09-02] MEDS ORDERED: TRANEXAMIC ACID / 0.7% NACL 1,000 MG/100 ML BAG IV SCH (19:16)
[2019-09-02] MEDS: TAPENTADOL HCL ER 50 MG TABCR PO SCH (20:50)
[2019-09-02] MEDS: DOCUSATE SODIUM 100 MG CAP PO SCH (20:50)
[2019-09-02] MEDS: ASPIRIN 81 MG ECTAB PO SCH (20:50)
[2019-09-02] MEDS: SENNA 8.6 MG TAB PO SCH (20:50)
[2019-09-03] MEDS: KETOROLAC 30 MG/ML VIAL IV SCH ×2 (02:17→08:50)
[2019-09-03] MEDS: ACETAMINOPHEN 500 MG TAB PO SCH ×3 (05:15→21:17)
[2019-09-03 06:16] LABS: Hematocrit (blood only) 35.1 % (42-52); Hemoglobin 12.1 g/dL (14.0-18.0); Mean Corpuscular Hemoglobin 31.3 pg (25-34); Mean Corpuscular Hgb Conc 34.5 g/dL (32-36); Mean Corpuscular Volume 90.9 fL (80-100); Mean Platelet Volume 9.5 fL (7.4-10.4); Platelet Count 186 K/uL (130-400); RDW Coefficient of Variation 12.8 % (11.5-14.5); RDW Standard Deviation 42.5 fL (36.4-46.3); Red Blood Count 3.86 M/uL (4.7-6.1); White Blood Count 7.03 K/uL (4.8-10.8)
[2019-09-03 06:39] LABS: BUN Creatinine Ratio 19.9 (10-20); Calcium 9.1 mg/dl (8.5-10.1); Creatinine Clr Calc Pharmacy 56.1 ml/min; Est GFR (Non-African American) 50.9; Potassium 4.1 mmol/L (3.5-5.1)
[2019-09-03] MEDS: hydroCHLOROthiazide 25 MG TAB PO SCH (08:50)
[2019-09-03] MEDS: DOCUSATE SODIUM 100 MG CAP PO SCH ×2 (08:50→21:16)
[2019-09-03] MEDS: PANTOprazole 40 MG TAB PO SCH (08:50)
[2019-09-03] MEDS: MULTIVITAMIN TAB PO SCH (08:50)
[2019-09-03] MEDS: ASPIRIN 81 MG ECTAB PO SCH ×2 (08:50→21:16)
[2019-09-03] MEDS: FERROUS GLUCONATE 324 MG TAB PO SCH ×2 (08:51→16:02)
[2019-09-03] MEDS: ASCORBIC ACID 500 MG TAB PO SCH ×2 (08:51→16:02)
[2019-09-03] MEDS: lisinopriL 40 MG TAB PO SCH (08:51)
[2019-09-03] MEDS: TAPENTADOL HCL ER 50 MG TABCR PO SCH ×2 (08:55→21:16)
--- NOTE | 2019-09-03 14:56 | Progress Note ---
DATE: 09/03/2019 SUBJECTIVE: A 64-year-old gentleman postop day 1 from a right knee replacement. He is doing pretty well. Quite a bit of pain with therapy but in between very manageable. No chest pain or shortness of breath. Not feeling dizzy or lightheaded. OBJECTIVE: VITAL SIGNS: Temperature 36.5. Vital signs stable. GENERAL: Shows a pleasant, middle-aged male. He is sitting on his bed, looks pretty comfortable. He is talking on his cell phone when I went in to visit him this afternoon. EXTREMITIES: Examination of his right leg reveals the leg to be well aligned. Dressing is clean, dry, and intact. He can dorsiflex and plantarflex his foot appropriately. He is neurologically intact. LABORATORY DATA: Hemoglobin 12.1. Hematocrit 35.1. Electrolytes reveal creatinine increased at 1.45. ASSESSMENT: A 64-year-old gentleman postop day 1 from a right knee replacement, doing pretty well. Pain is reasonably well controlled. His creatinine has bumped up some and we are going to stop his Toradol. PLAN: 1. DVT prophylaxis including thigh-high TEDs, SCDs, and aspirin twice a day. 2. PT/OT. Weight bear as tolerated. Right total knee protocol. 3. Pain control, doing okay with current pain regimen. 4. Elevated creatinine. We are going to stop his Toradol for now and we will recheck his creatinine in the morning. Encourage p.o. intake. 5. Disposition: Plan to discharge to home with some home health once adequately recovered and stable.
[2019-09-03] MEDS: SENNA 8.6 MG TAB PO SCH (21:16)
[2019-09-04] MEDS: ACETAMINOPHEN 500 MG TAB PO SCH (05:50)
[2019-09-04 07:10] LABS: BUN Creatinine Ratio 21.9 (10-20); Calcium 9.6 mg/dl (8.5-10.1); Creatinine Clr Calc Pharmacy 67.2 ml/min; Est GFR (African American) 73.4; Est GFR (Non-African American) 63.3; Potassium 4.2 mmol/L (3.5-5.1)
[2019-09-04] MEDS ORDERED: KETOROLAC TROMETHAMINE 15 MG/ML VIAL IV SCH (08:00)
--- NOTE | 2019-09-04 08:14 | Progress Note ---
DATE: 09/04/2019 SUBJECTIVE: A 64-year-old gentleman postop day 2 from right knee replacement. He is doing pretty well. Pain seems to better today. Seems to do better with the Dilaudid than he did with oxycodone. No chest pain or shortness of breath. Not feeling dizzy or lightheaded. OBJECTIVE: VITAL SIGNS: Temperature 37.6. Vital signs stable. GENERAL: Shows a pleasant, middle-aged male. He is sitting on bed, looks pretty comfortable. EXTREMITIES: Examination of the right leg reveals the leg to be well aligned. Dressing is clean, dry and intact. Calf is soft and supple. Fairly mild swelling. He is neurologically intact. LABORATORY DATA: Creatinine improved at 1.21. ASSESSMENT: A 64-year-old gentleman postop day 2 from right knee replacement, doing well. His pain seems to be better. Creatinine is improved. PLAN: 1. DVT prophylaxis including thigh-high TEDs, SCDs, and aspirin twice a day. 2. PT/OT. Weight bear as tolerated. Right total knee protocol. 3. Pain control, doing well with current pain regimen. 4. Disposition: Plan to discharge to home with some home health likely later today.
[2019-09-04] MEDS: MULTIVITAMIN TAB PO SCH (09:29)
[2019-09-04] MEDS: PANTOprazole 40 MG TAB PO SCH (09:29)
[2019-09-04] MEDS: DOCUSATE SODIUM 100 MG CAP PO SCH (09:29)
[2019-09-04] MEDS: FERROUS GLUCONATE 324 MG TAB PO SCH (09:29)
[2019-09-04] MEDS: hydroCHLOROthiazide 25 MG TAB PO SCH (09:30)
[2019-09-04] MEDS: ASPIRIN 81 MG ECTAB PO SCH (09:30)
[2019-09-04] MEDS: lisinopriL 40 MG TAB PO SCH (09:30)
[2019-09-04] MEDS: ASCORBIC ACID 500 MG TAB PO SCH (09:30)
[2019-09-04] MEDS: TAPENTADOL HCL ER 50 MG TABCR PO SCH (09:33)
--- NOTE | 2019-09-05 14:51 | Discharge Summary ---
ADMITTING PHYSICIAN AND SURGEON: Dr. Hilario Nguyen. ADMITTING DIAGNOSIS: Right knee degenerative joint disease. SURGERY PERFORMED: Right total knee arthroplasty. SECONDARY DIAGNOSES: Hypertension, gastroesophageal reflux disease, skin cancer, arthritis, kidney stones, BPH. CONSULTS: None obtained. HISTORY AND PHYSICAL EXAMINATION: Well documented in the patient's chart. HOSPITAL COURSE: The patient was admitted on 09/02/2019 underwent total knee arthroplasty, tolerated the procedure well and there were no complications. He was transferred to the PACU postoperatively and later to the orthopedic floor for further care. He was given Ancef for antibiotic prophylaxis, JEREMIAH stockings, SCDs and aspirin for DVT prophylaxis. Hemoglobin, hematocrit and vital signs were monitored during his hospital stay and remained stable, did not require any blood transfusions. There were no complications. Postop day 2, he was tolerating a regular diet, pain was controlled with oral pain medicine. He was participating in physical therapy. Postop day 2, discharged home, set up with home health services, given printed discharge instructions as well as new prescriptions for extra strength Tylenol, aspirin and hydromorphone. Continue his home medications, continue physical therapy, weightbearing as tolerated, JEREMIAH stockings. Follow up approximately 2 weeks postop or sooner if there are any problems or concerns.
== END 2019-09-04 10:03 | disposition home health service (06) | DRG 470 ==
LOC: ASU 08:09 → 3E 14:11